=== PATIENT | female | born 2000 | race African-American/Black ===

== ENCOUNTER 2023-10-06 18:28 | Emergency (ER) | payer OTHER ==
[~2023-10-06] VITALS: Ht 154.9 cm; Wt 42.7 kg
[2023-10-06 19:15] LABS: BASO % 0.4 % (0.0-1.0); EOS # 0.1 10^3/uL (0.0-0.5); EOS % 0.9 % (0.0-3.0); HEMOGLOBIN 10.9 g/dl (12.0-15.5); LYMPH # 2.7 10^3/uL (1.5-5.0); MEAN CORPUSCULAR HEMOGLOBIN 25.2 pg (27.0-33.0); MEAN CORPUSCULAR HGB CONC 31.1 g/dl (32.0-36.5); MONO # 0.9 10^3/uL (0.0-0.8); MONO % 12.8 % (2.0-8.0); NEUTROPHILS # 3.1 10^3/uL (1.5-8.5); NEUTROPHILS % 45.8 % (36.0-66.0); PLATELET COUNT, AUTOMATED 267 10^3/uL (150-450); RED BLOOD COUNT 4.32 10^6/uL (4.00-5.40); WHITE BLOOD COUNT 6.8 10^3/uL (4.0-10.0)
[2023-10-06 19:39] LABS: LIPASE 43 U/L (12-53)
[2023-10-06 19:41] LABS: ALBUMIN 3.8 G/DL (3.2-5.2); ALKALINE PHOSPHATASE 59 U/L (46-116); ALT/SGPT < 9 U/L (7.0-40); AST/SGOT 10 U/L (<34); BILIRUBIN,DIRECT < 0.1 MG/DL (<0.4); BILIRUBIN,TOTAL 0.2 MG/DL (0.3-1.2); TOTAL PROTEIN 6.9 G/DL (5.7-8.2)
[2023-10-06 20:11] LABS: HCG, SERUM QUANTITATIVE 137801.6 MIU/ML (<4.2)
[2023-10-06 20:49] LABS: CHLAMYDIA DNA AMPLIFICATION NEGATIVE (NEGATIVE); GC DNA AMPLIFICATION NEGATIVE (NEGATIVE)
[2023-10-06] MEDS ORDERED: NITR1CAP11 PO (20:56)
[2023-10-06] MEDS ORDERED: NITROFURANTOIN (MACROBID) 100 MG CAP PO ONE (21:00)
[2023-10-06 21:06] VITALS: BP 130/64; TEMP 98.2; O2SAT 98
== END 2023-10-06 21:11 | disposition home or self-care (01) ==
LOC: M ED 18:28
DX: O23.41 Unspecified infection of urinary tract in pregnancy, first trimester (principal); Z3A.09 9 weeks gestation of pregnancy; Z79.899 Other long term (current) drug therapy

== ENCOUNTER 2023-10-14 07:34 | Emergency (ER) | payer OTHER ==
[~2023-10-14] VITALS: Ht 154.9 cm; Wt 42.2 kg
[~2023-10-14 07:34] MED LIST: NITR1CAP11 PO
[2023-10-14 08:22] LABS: BASO % 0.5 % (0.0-1.0); EOS # 0.1 10^3/uL (0.0-0.5); EOS % 0.9 % (0.0-3.0); HEMATOCRIT 36.4 % (36.0-47.0); HEMOGLOBIN 11.3 g/dl (12.0-15.5); LYMPH # 2.1 10^3/uL (1.5-5.0); LYMPH % 36.4 % (24.0-44.0); MEAN CORPUSCULAR HEMOGLOBIN 25.1 pg (27.0-33.0); MEAN CORPUSCULAR VOLUME 80.9 fl (80.0-96.0); MONO # 0.7 10^3/uL (0.0-0.8); MONO % 11.4 % (2.0-8.0); NEUTROPHILS # 2.9 10^3/uL (1.5-8.5); NEUTROPHILS % 50.5 % (36.0-66.0); PLATELET COUNT, AUTOMATED 278 10^3/uL (150-450); WHITE BLOOD COUNT 5.8 10^3/uL (4.0-10.0)
[2023-10-14 08:45] LABS: BLOOD UREA NITROGEN 7 MG/DL (9-23); CARBON DIOXIDE LEVEL 27 MMOL/L (20-31); CHLORIDE LEVEL 104 MMOL/L (98-107); CREATININE FOR GFR 0.48 MG/DL (0.55-1.30); GLOMERULAR FILTRATION RATE > 60.0 (>60); GLUCOSE, FASTING 87 MG/DL (60-100); POTASSIUM SERUM 3.6 MMOL/L (3.5-5.1); SODIUM LEVEL 137 MMOL/L (136-145)
[2023-10-14 09:15] LABS: HCG, SERUM QUANTITATIVE 133246.8 MIU/ML (<4.2)
[2023-10-14 09:57] VITALS: BP 124/64; TEMP 96.9; O2SAT 100
== END 2023-10-14 10:15 | disposition home or self-care (01) ==
LOC: M ED 07:34
DX: O20.8 Other hemorrhage in early pregnancy (principal); Z3A.11 11 weeks gestation of pregnancy

== ENCOUNTER 2024-01-13 08:41 | Outpatient (CLI) | payer OTHER ==
[~2024-01-13] VITALS: Ht 157.5 cm; Wt 47.9 kg
[2024-01-13] MEDS ORDERED: PRENTAB9 PO (09:03)
[2024-01-13] MEDS ORDERED: HOME MED LIST COMPLETE! XX SCH (09:05)
[2024-01-13 09:08] VITALS: BP 135/63
[2024-01-13 09:23] VITALS: BP 120/60
== END 2024-01-13 09:50 | disposition home or self-care (01) ==
LOC: M LDO 08:41
PROVIDERS: ATTEND Advanced Practice Midwife
DX: Z34.82 Encounter for supervision of other normal pregnancy, second trimester (principal); Z3A.23 23 weeks gestation of pregnancy; Z71.1 Person with feared health complaint in whom no diagnosis is made

== ENCOUNTER 2024-01-31 23:21 | Outpatient (CLI) | payer OTHER ==
[~2024-01-31] VITALS: Ht 157.5 cm; Wt 48.0 kg
[~2024-01-31 23:21] MED LIST changes: +PRENTAB9 PO
[2024-01-31 23:41] VITALS: BP 113/64; O2SAT 97
[2024-01-31] MEDS ORDERED: ACET325C5 PO (23:42)
[2024-01-31] MEDS ORDERED: HOME MED LIST COMPLETE! XX SCH (23:50)
[2024-02-01] MEDS ORDERED: PERCOCET 5MG/325MG TAB PO ONE (01:15)
[2024-02-01] MEDS: FIORICET TAB PO ONE (01:22)
[2024-02-01] MEDS: IBUPROFEN 400MG TAB PO ONE (02:16)
[2024-02-01] MEDS ORDERED: ESGI1TAB PO (07:13)
== END 2024-02-01 02:19 | disposition home or self-care (01) ==
LOC: M LDO 23:21
PROVIDERS: ATTEND Specialist
DX: O26.892 Other specified pregnancy related conditions, second trimester (principal); R51.9 Headache, unspecified; Z3A.25 25 weeks gestation of pregnancy
CPT/HCPCS: 59025; G0463

== ENCOUNTER → 2024-02-26 | Outpatient (REF) | payer OTHER ==
[~2024-02-26] MED LIST changes: +ACET325C5 PO; +ESGI1TAB PO; +NITR100C3 PO; -NITR1CAP11 PO
== END ==
LOC: M PLALAB 15:22
PROVIDERS: ATTEND Advanced Practice Midwife
DX: O98.61 Protozoal diseases complicating pregnancy (principal)

== ENCOUNTER → 2024-04-19 | Outpatient (REF) | payer OTHER | LOC: M SFHCWAGY 12:33 | PROVIDERS: ATTEND Nurse Practitioner Women's Health | DX: Z34.83 Encounter for supervision of other normal pregnancy, third trimester (principal); R35.0 Frequency of micturition; Z36.85 Encounter for antenatal screening for Streptococcus B ==

== ENCOUNTER 2024-04-24 21:17 | Inpatient (IN) | payer OTHER ==
[~2024-04-24] VITALS: Ht 154.9 cm; Wt 51.8 kg
[2024-04-24 21:33] VITALS: BP 106/55
[2024-04-24] MEDS ORDERED: MACR100C43 PO (21:43)
[2024-04-24] MEDS ORDERED: HOME MED LIST COMPLETE! XX SCH (21:45)
[2024-04-24 23:23] VITALS: BP 133/68
[2024-04-24 23:38] LABS: HEMATOCRIT 35.9 % (36.0-47.0); HEMOGLOBIN 11.1 g/dl (12.0-15.5); MEAN CORPUSCULAR HEMOGLOBIN 23.9 pg (27.0-33.0); MEAN CORPUSCULAR HGB CONC 30.9 g/dl (32.0-36.5); MEAN CORPUSCULAR VOLUME 77.2 fl (80.0-96.0); PLATELET COUNT, AUTOMATED 389 10^3/uL (150-450); RED BLOOD COUNT 4.65 10^6/uL (4.00-5.40); WHITE BLOOD COUNT 9.8 10^3/uL (4.0-10.0)
[2024-04-25] VITALS (27 sets, daily range): BP systolic 100–159; BP diastolic 53–81; O2SAT 98–100
[2024-04-25] MEDS ORDERED: TRANEXAMIC ACID INJection 1,000 MG in NS 100 ML IV PRN (00:40)
[2024-04-25] MEDS ORDERED: OXYTOCIN DRIP 30 UNITS in IV 1 EA IV PRN (00:40)
[2024-04-25] MEDS ORDERED: METHYLERGONOVINE MALEATE 0.2MG/ML 1ML VIAL IM PRN (00:40)
[2024-04-25] MEDS ORDERED: LIDOCAINE 1% MDV 20ML VIAL INFIL PRN (00:40)
[2024-04-25] MEDS: miSOPROStol 50MCG 1/2 TABLET PO SCH (00:53)
[2024-04-25 02:12] LABS: HEPATITIS C VIRUS ABY INDEX 0.04 INDEX (<0.8)
[2024-04-25] MEDS ORDERED: diphenhydrAMINE 50MG/ML VIAL IV PRN (08:00)
[2024-04-25] MEDS ORDERED: EPIDURAL/PCA KEYS XX PRN (08:00)
[2024-04-25] MEDS ORDERED: NALOXONE INJ 0.4MG/1ML VIAL IV PRN (08:00)
[2024-04-25] MEDS ORDERED: ONDANSETRON 4MG 2ML VIAL IV PRN (08:00)
[2024-04-25] MEDS ORDERED: ePHEDrine SULFATE 25 MG/5 ML(5MG/ML) SYRINGE IVP PRN (08:00)
[2024-04-25] MEDS ORDERED: LR 500 ML IV PRN (08:00)
[2024-04-25] MEDS ORDERED: FENTANYL 2MCG/ML ROPIVACAINE 0.2% IN 0.9% NACL 100ML IVBAG As Ordered ONE (08:02)
[2024-04-25] MEDS: FENTANYL/ROPIVACAINE/NACL BAG 100 ML EPIDURAL SCH (08:35)
[2024-04-25] MEDS ORDERED: RHO(D) IMMUNE GLOBULIN/MALTOSE 500MCG(2500IU)/2.2ML VIAL (WINRHO) IM SCH (10:10)
[2024-04-25] MEDS ORDERED: ACETAMINOPHEN TAB 650MG DOSE (2X325MG) PO PRN (10:10)
[2024-04-25] MEDS ORDERED: IBUPROFEN 600MG TAB PO PRN (10:10)
[2024-04-25] MEDS ORDERED: MOM 30ML SUSPENSION UDC PO PRN (10:10)
[2024-04-25] MEDS ORDERED: DIBUCAINE 1% OINTMENT 30GM TOP PRN (10:10)
[2024-04-25] MEDS ORDERED: DOCUSATE SODIUM 100MG CAPSULE PO PRN (10:10)
[2024-04-25] MEDS ORDERED: ANUSOL HC CREAM 30GM TOP PRN (10:10)
[2024-04-25] MEDS: ACETAMINOPHEN 500 MG TAB PO PRN (11:36)
[2024-04-25] MEDS: IBUPROFEN 800 MG TAB PO PRN (20:03)
[2024-04-26 05:55] VITALS: BP 117/71; O2SAT 99
[2024-04-26] MEDS: PRENATAL VITAMINS CHEWABLE TABLET PO SCH (11:00)
[2024-04-26 18:00] VITALS: BP 114/66; O2SAT 100
[2024-04-27 06:00] VITALS: BP 105/66; O2SAT 98
[2024-04-27] MEDS: MEASLES,MUMPS,RUBELLA VACCINE INJ (MMR-II) SC.IMMUN ONE (08:40)
== END 2024-04-27 15:36 | disposition home or self-care (01) | DRG 807 ==
LOC: M LDO 21:17 → M LDI 23:01 → M OBS 04-25 11:45
PROVIDERS: ADMIT Obstetrics & Gynecology; ATTEND Advanced Practice Midwife
PROC: 10E0XZZ Delivery of Products of Conception, External Approach (ICD-10-PCS; principal; 2024-04-25)
PROC: 3E0P7GC Introduction of Other Therapeutic Substance into Female Reproductive, Via Natural or Artificial Opening (ICD-10-PCS; 2024-04-25)
DX: O26.893 Other specified pregnancy related conditions, third trimester (principal); Z37.0 Single live birth; O45.93 Premature separation of placenta, unspecified, third trimester; Z3A.38 38 weeks gestation of pregnancy; D26.7 Other benign neoplasm of other parts of uterus; O36.8130 Decreased fetal movements, third trimester, not applicable or unspecified; O36.5930 Maternal care for other known or suspected poor fetal growth, third trimester, not applicable or unspecified; O69.81X0 Labor and delivery complicated by cord around neck, without compression, not applicable or unspecified